=== PATIENT | male | born 2000 | race Caucasian/White ===

== ENCOUNTER 2024-03-05 11:13 | Emergency (ER) | payer OTHER, MEDICAID ==
[~2024-03-05] VITALS: Ht 177.8 cm; Wt 109.0 kg
[2024-03-05] MEDS: SODIUM CHLORIDE 0.9% 1,000 ML IVB ONE (11:30)
[2024-03-05 12:05] LABS: Basophils # (auto) 0 10 ^3/uL (0-0.2); Lymphocytes # (auto) 1.6 10 ^3/uL (0.4-5.4); Monocytes # (auto) 0.6 10 ^3/uL (0-1.3)
[2024-03-05 12:08] LABS: Basophils % (auto) 0.5 % (0.0-2.0); Eosinophils # (auto) 0.4 10 ^3/uL (0-0.8); Eosinophils % (auto) 4.2 % (0.0-7.0); Hematocrit 40.9 % (41.0-53.0); Hemoglobin 13.4 g/dL (13.5-17.5); Lymphocytes % (auto) 18.6 % (10.0-50.0); Mean Corpuscular Hemoglobin 25.3 pg (28.0-32.0); Mean Corpuscular Hgb Conc. 32.7 g/dL (32.0-36.0); Mean Corpuscular Volume 77.4 fL (80.0-100.0); Monocytes % (auto) 7.5 % (0.0-12.0); Neutrophils # (auto) 5.8 10 ^3/uL (1.6-8.6); Neutrophils % (auto) 69.2 % (37.0-80.0); Red Blood Cells 5.29 10^6/uL (4.5-5.90); Red Cell Distribution Width 15.4 % (11.8-14.3); White Blood Cell 8.4 10^3/uL (4.4-10.8)
[2024-03-05 12:16] LABS: Chloride 108 mmol/L (98-107); Potassium 4.3 mmol/L (3.5-5.1); Sodium 138 mmol/L (136-145)
[2024-03-05 12:17] LABS: Anion Gap 7 (5-15); Calcium 9.6 mg/dL (8.5-10.1); Carbon Dioxide 23 mmol/L (20-30)
[2024-03-05 12:22] LABS: BUN/Creatinine Ratio 5.9 (10.0-20.0); Blood Urea Nitrogen 7 mg/dL (9-23); Glucose 96 mg/dL (74-106)
[2024-03-05 13:37] LABS: Urine Bacteria None Seen /hpf (None Seen)
[2024-03-05 13:42] VITALS: PULSE 122; RESP 20; O2SAT 96
[2024-03-05] MEDS ORDERED: CEPH250S41 PO (13:44)
[2024-03-05] MEDS ORDERED: AZIT1POW PO (13:48)
[2024-03-05 14:02] LABS: Urine Blood Negative /uL (Negative); Urine Clarity Clear (Clear); Urine Protein, UAD Negative (Negative); Urine Urobilinogen Normal (Negative); Urine WBC 5 /hpf (0 - 3); Urine pH 6.5 (5.0-9.0)
[2024-03-05 14:11] LABS: Urine Color STRAW (Yellow)
[2024-03-05 14:22] VITALS: BP 129/85; PULSE 122; RESP 22; TEMP 98.2; O2SAT 96
[2024-03-05] MEDS ORDERED: AZIT500T PO (15:06)
== END 2024-03-05 13:45 | disposition home or self-care (01) ==
LOC: ER 11:13 → EDBD 11:13 → ER 13:45
DX: R56.9 Unspecified convulsions (principal); J20.9 Acute bronchitis, unspecified
CPT/HCPCS: 36415; 70450; 71045; 80048; 81001; 85025; 93005; 96360; 96361; 99285; J7030